=== PATIENT | female | born 1960 | race Caucasian/White ===

== ENCOUNTER 2016-05-13 15:17 | Emergency (ER) | payer BC ==
[~2016-05-13] VITALS: Ht 162.6 cm; Wt 97.7 kg
[~2016-05-13 15:17] MED LIST: ALLEGRA-D 24 HO1 T24 PO; ALLEGRA180 MG PO; ASPIRIN 81M81 MG/TA2 PO; B-12 500 MCG; B12; BENADRYL25 M2 PO; CALTRATE; CALTRATE 600600 MG PO; CARDI-OMEGA1000 MG PO; CHROMIUM PICO500 MC1 PO; CINNAMON500 MG PO; CIPRO 500MG TA500 MG PO; CYMBALTA 30MG30 MG PO; DILAUDID 2MG TAB2 MG PO; DOXYCYCLINE 10100 MG PO; ESTRACE0.5 MG PO; FISH OIL500 MG PO; FLONASE NASAL S16 GM NS; FOLIC ACID0.4 MG PO; GLUCOSAMINE; HUMIRA40 MG/0.8 MR; LEVOTHYROXIN0.025 MG PO; LISINOPRIL/HCTZ1 TA1 PO; LORTAB 7.5/5001 TAB PO; MAGNESIUM500 MG PO; MEDROL 4MG DOSPA4 MG PO; METHOTREXA2.5 MG/TAB PO; MULTIPLE VITAMI1 CAP PO; MULTIVITS; NAPROSYN375 MG PO; NEURONTIN100 MG/CAP PO; NORCO 325 MG-51 TAB PO; NUCYNTA ER100 MG PO; OSCAL 500 TAB500 MG PO; OSTEO-BI-FLEX 21 TAB PO; PAXIL 20MG20 MG PO; PENNSAID 150 M150 ML TOP; PERCOCET 325 MG1 TA2 PO; PERCOCET 325 MG1 TAB PO; PLAQUENIL 200M200 MG PO; PREDNISONE10 MG PO; PRINIVIL10 MG PO; RAYOS5 MG PO; REGLAN 10MG10 MG/TAB PO; SUPER EPA W/BO400 MG PO; ULTRAM50 MG PO; VENTOLIN0.09 MG IH; VITAMIN D32000 I1 PO; ZOCOR 10MG10 MG PO
[2016-05-13 15:27] VITALS: TEMP 98.3
[2016-05-13 16:40] LABS: BASO # 0.1 (0.0-0.2); EOS # 0.3 (0.0-0.7); EOS % 2.5 % (0-4.0); GRAN # 5.8 (1.4-6.5); GRAN % 55.6 % (42.2-75.2); HEMATOCRIT 45.4 % (37.0-47.0); HEMOGLOBIN 15.4 g/dl (12.5-16.0); LYMPH # 3.1 (1.2-3.4); LYMPH % 30.1 % (20.0-51.0); MEAN CELL VOLUME 92 fl (80.0-100.0); MEAN CORPUSCULAR HEMOGLOBIN 31 pg (27.0-31.0); MEAN CORPUSCULAR HGB CONC 34 g/dl (33.0-37.0); MEAN PLATELET VOLUME 10.6 fl (7.4-10.4); MONO # 1.1 (0.1-0.6); MONO % 10.4 % (1.7-9.3); PLATELET COUNT 267 K/mm3 (130-400); RED BLOOD COUNT 4.92 M/mm3 (4.10-5.30); REDCELL DISTRIBUTION WIDTH-CV 13.5 % (11.5-14.5); WHITE BLOOD COUNT 10.4 K/mm3 (4.8-10.8)
[2016-05-13 16:47] LABS: ADJUSTED CALCIUM 9.4 mg/dL (8.4-10.2); ALBUMIN 4.1 gm/dL (3.5-5.0); BILIRUBIN,TOTAL 0.7 mg/dL (0.0-1.0); CALCIUM 9.5 mg/dL (8.4-10.2); CREATININE, serum 0.91 mg/dL (0.52-1.25); POTASSIUM 4.7 mmol/L (3.4-5.0); TOTAL PROTEIN 7.4 gm/dL (6.4-8.2)
[2016-05-13 16:51] LABS: PH 6 (5-8); SQUAMOUS EPITHELIAL None Seen /hpf; URINE APPEARANCE Clear; URINE BACTERIA None Seen /hpf; URINE BILIRUBIN Negative (NEGATIVE); URINE BLOOD 3+ (NEGATIVE); URINE COLOR Yellow; URINE GLUCOSE Negative (NEGATIVE); URINE KETONE Negative (NEGATIVE); URINE RBC >50 /hpf; URINE UROBILINOGEN Negative (NEGATIVE); URINE WBC 0-2 /hpf
[2016-05-13] MEDS ORDERED: BELSOMRA10 MG PO (16:56)
[2016-05-13] MEDS ORDERED: MUCINEX D 12001 TER PO (16:59)
[2016-05-13] MEDS ORDERED: VENTOLIN0.09 MG IH (17:00)
[2016-05-13] MEDS ORDERED: PARAFON FORTE500 MG (17:03)
[2016-05-13] MEDS ORDERED: NUCYNTA ER100 MG PO (17:03)
[2016-05-13] MEDS ORDERED: GLUCOPHAGE500 MG/TAB PO (17:05)
[2016-05-13] MEDS ORDERED: SAXENDA6 MG/ML SQ (17:06)
[2016-05-13 18:37] VITALS: BP 143/100; PULSE 91
[2016-05-14] MEDS ORDERED: BIOTENE DRY M1000 ML MM (04:57)
[2016-05-14] MEDS ORDERED: SYNTHROID0.1 MG/TAB PO (05:00)
[2016-05-14] MEDS ORDERED: MUCINEX FAST-M177 ML PO (05:02)
[2016-05-14] MEDS ORDERED: REFRESH TEARS 330 ML OP (05:17)
[2016-05-14] MEDS ORDERED: CIPRO 250MG TA250 MG PO (05:20)
[2016-05-14] MEDS ORDERED: PYRIDIUM200 M1 PO (05:20)
[2016-05-14] MEDS ORDERED: DILAUDID 2MG TAB2 MG PO (05:20)
== END 2016-05-13 18:37 | disposition home or self-care (01) ==
LOC: COL.ER 15:17
PROVIDERS: Emergency Medicine
DX: N30.90 Cystitis, unspecified without hematuria (principal); N21.0 Calculus in bladder; I10 Essential (primary) hypertension
CPT/HCPCS: J0696; J2765; J3010; J7030; Q9967

== ENCOUNTER 2016-05-14 03:55 | Emergency (ER) | payer BC ==
[~2016-05-14] VITALS: Ht 154.9 cm; Wt 97.7 kg
[~2016-05-14 03:55] MED LIST changes: +BELSOMRA10 MG PO; +GLUCOPHAGE500 MG/TAB PO; +MUCINEX D 12001 TER PO; +PARAFON FORTE500 MG; +SAXENDA6 MG/ML SQ
[2016-05-14 03:57] VITALS: TEMP 97.4
[2016-05-14 04:27] LABS: PH 8 (5-8); SQUAMOUS EPITHELIAL 0-2 /hpf; URINE APPEARANCE Hazy; URINE BACTERIA None Seen /hpf; URINE BILIRUBIN Negative (NEGATIVE); URINE BLOOD 3+ (NEGATIVE); URINE COLOR Yellow; URINE GLUCOSE Negative (NEGATIVE); URINE KETONE Negative (NEGATIVE); URINE RBC >50 /hpf; URINE UROBILINOGEN Negative (NEGATIVE); URINE WBC 0-2 /hpf
[2016-05-14] MEDS ORDERED: BIOTENE DRY M1000 ML MM (04:57)
[2016-05-14] MEDS ORDERED: SYNTHROID0.1 MG/TAB PO (05:00)
[2016-05-14] MEDS ORDERED: MUCINEX FAST-M177 ML PO (05:02)
[2016-05-14] MEDS ORDERED: REFRESH TEARS 330 ML OP (05:17)
[2016-05-14] MEDS ORDERED: CIPRO 250MG TA250 MG PO (05:20)
[2016-05-14] MEDS ORDERED: DILAUDID 2MG TAB2 MG PO (05:20)
[2016-05-14] MEDS ORDERED: PYRIDIUM200 M1 PO (05:20)
[2016-05-14 05:47] VITALS: BP 143/73; PULSE 86
== END 2016-05-14 05:59 | disposition home or self-care (01) ==
LOC: COL.ER 03:55
PROVIDERS: Emergency Medicine
DX: N21.0 Calculus in bladder (principal); E11.9 Type 2 diabetes mellitus without complications; I10 Essential (primary) hypertension
CPT/HCPCS: J1170; J2405; J7030

== ENCOUNTER 2016-05-18 06:39 | Day surgery (SDC) | payer BC ==
[2016-05-18] VITALS (8 sets, daily range): BP systolic 108–164; BP diastolic 73–99; PULSE 79–92; TEMP 98.2–99.4
[~2016-05-18] VITALS: Ht 162.6 cm; Wt 100.1 kg
[~2016-05-18 06:39] MED LIST changes: +BIOTENE DRY M1000 ML MM; +CIPRO 250MG TA250 MG PO; +MUCINEX FAST-M177 ML PO; +PYRIDIUM200 M1 PO; +REFRESH TEARS 330 ML OP; +SYNTHROID0.1 MG/TAB PO
[2016-05-18] MEDS ORDERED: NEURONTIN300 MG/CAP PO (08:06)
[2016-05-18] MEDS ORDERED: HUMIRA40 MG/0.8 SQ (08:08)
[2016-05-18] MEDS ORDERED: NUCYNTA50 MG PO (08:13)
[2016-05-18] MEDS ORDERED: PENNSAID 150 M150 ML TOP (08:14)
[2016-05-18] MEDS ORDERED: NATURE'S BLE1000 MCG PO (08:21)
[2016-05-18] MEDS ORDERED: CALTRATE-600 W600 MG PO ×2 (08:25→08:26)
[2016-05-18] MEDS ORDERED: PROFERRIN ES12 MG PO (08:28)
== END 2016-05-18 12:55 | disposition home or self-care (01) ==
LOC: SDCO 06:39
DX: N21.0 Calculus in bladder (principal)
CPT/HCPCS: J0690; J1885; J2405; J2550; J2704; J3010; J7030; J7120

== ENCOUNTER 2016-06-30 18:15 | Emergency (ER) | payer BC ==
[~2016-06-30] VITALS: Ht 162.6 cm; Wt 93.2 kg
[~2016-06-30 18:15] MED LIST changes: +CALTRATE-600 W600 MG PO; +HUMIRA40 MG/0.8 SQ; +NATURE'S BLE1000 MCG PO; +NEURONTIN300 MG/CAP PO; +NUCYNTA50 MG PO; +PROFERRIN ES12 MG PO
[2016-06-30 18:18] VITALS: TEMP 97.5
[2016-06-30 18:43] LABS: BASO # 0.1 (0.0-0.2); BASO % 0.6 % (0.0-2.0); EOS # 0.1 (0.0-0.7); EOS % 0.9 % (0-4.0); GRAN # 7.8 (1.4-6.5); GRAN % 74.4 % (42.2-75.2); HEMATOCRIT 45.4 % (37.0-47.0); LYMPH # 1.6 (1.2-3.4); LYMPH % 14.8 % (20.0-51.0); MEAN CELL VOLUME 91 fl (80.0-100.0); MEAN CORPUSCULAR HEMOGLOBIN 32 pg (27.0-31.0); MEAN CORPUSCULAR HGB CONC 35 g/dl (33.0-37.0); MEAN PLATELET VOLUME 10.5 fl (7.4-10.4); MONO # 0.9 (0.1-0.6); MONO % 8.9 % (1.7-9.3); PLATELET COUNT 230 K/mm3 (130-400); WHITE BLOOD COUNT 10.5 K/mm3 (4.8-10.8)
[2016-06-30 18:59] LABS: ADJUSTED CALCIUM 9.3 mg/dL (8.4-10.2); ALANINE AMINOTRANSFERASE 36 U/L (9-52); ALBUMIN 4.1 gm/dL (3.5-5.0); ALKALINE PHOSPHATASE 105 U/L (50-136); ANION GAP 15 mmol/L (7-16); BILIRUBIN,TOTAL 0.7 mg/dL (0.0-1.0); BLOOD UREA NITROGEN 11 mg/dL (7-17); CALCIUM 9.4 mg/dL (8.4-10.2); CARBON DIOXIDE 22 mmol/L (22-30); CHLORIDE 102 mmol/L (98-107); CREATININE, serum 0.85 mg/dL (0.52-1.25); GLUCOSE 169 mg/dL (74-106); LIPASE 149 U/L (23-300); POTASSIUM 3.6 mmol/L (3.4-5.0); SODIUM 138 mmol/L (137-145); TOTAL PROTEIN 6.8 gm/dL (6.4-8.2)
[2016-06-30 19:00] LABS: C-REACTIVE PROTEIN < 0.5 mg/dL (0.0-0.9)
[2016-06-30] MEDS ORDERED: CYMBALTA 60MG60 MG PO (19:25)
[2016-06-30] MEDS ORDERED: ZOFRAN ODT4 MG PO (19:35)
[2016-06-30 19:51] VITALS: BP 122/70; PULSE 85
== END 2016-06-30 19:54 | disposition home or self-care (01) ==
LOC: COL.ER 18:15
PROVIDERS: Family Medicine
DX: K52.9 Noninfective gastroenteritis and colitis, unspecified (principal); E11.9 Type 2 diabetes mellitus without complications; M06.9 Rheumatoid arthritis, unspecified; Z79.84 Long term (current) use of oral hypoglycemic drugs; Z98.84 Bariatric surgery status
CPT/HCPCS: J2405; J2550; J7030

== ENCOUNTER 2016-11-11 07:54 | Emergency (ER) | payer BC ==
[~2016-11-11] VITALS: Ht 162.6 cm; Wt 93.2 kg
[~2016-11-11 07:54] MED LIST changes: +CYMBALTA 60MG60 MG PO; +ZOFRAN ODT4 MG PO
[2016-11-11 07:58] VITALS: TEMP 97.5
[2016-11-11] MEDS ORDERED: BELSOMRA10 MG PO (08:06)
[2016-11-11] MEDS ORDERED: VENTOLIN0.09 MG IH (08:09)
[2016-11-11] MEDS ORDERED: HUMIRA40 MG/0.8 SQ (08:10)
[2016-11-11] MEDS ORDERED: PLAQUENIL 200M200 MG PO (08:11)
[2016-11-11] MEDS ORDERED: NUCYNTA75 MG PO (08:13)
[2016-11-11] MEDS ORDERED: PENNSAID 150 M150 ML TOP (08:13)
[2016-11-11] MEDS ORDERED: PREDNISONE20 MG PO (08:50)
[2016-11-11 09:13] VITALS: BP 141/97; PULSE 80
== END 2016-11-11 09:14 | disposition home or self-care (01) ==
LOC: COL.ER 07:54
DX: M06.9 Rheumatoid arthritis, unspecified (principal); S50.861A Insect bite (nonvenomous) of right forearm, initial encounter; E11.9 Type 2 diabetes mellitus without complications; Z79.82 Long term (current) use of aspirin; Z79.84 Long term (current) use of oral hypoglycemic drugs

== ENCOUNTER → 2017-05-16 | Outpatient (CLI) | payer BC ==
[~2017-05-16] MED LIST changes: +NUCYNTA75 MG PO; +PREDNISONE20 MG PO
== END ==
LOC: COL.RAD 07:13
DX: N39.0 Urinary tract infection, site not specified (principal)

== ENCOUNTER → 2018-07-10 | Outpatient (CLI) | payer BC ==
[2018-07-10 13:20] LABS: CREATININE, serum 1.09 (0.52-1.25)
== END ==
LOC: COL.LAB 12:08
PROVIDERS: Family Medicine
DX: R22.2 Localized swelling, mass and lump, trunk (principal)

== ENCOUNTER → 2018-12-31 | Outpatient (CLI) | payer BC | LOC: COL.RAD 10:02 | DX: Z01.812 Encounter for preprocedural laboratory examination (principal); M79.641 Pain in right hand | CPT/HCPCS: A9585 ==

== ENCOUNTER 2019-05-10 18:01 | Emergency (ER) | payer BC ==
[~2019-05-10] VITALS: Ht 160 cm; Wt 59.1 kg
[2019-05-10 18:09] VITALS: BP 130/77; TEMP 97.4
[2019-05-10 18:59] VITALS: PULSE 71
== END 2019-05-10 19:01 | disposition home or self-care (01) ==
LOC: COL.ER 18:01
DX: S01.81XA Laceration without foreign body of other part of head, initial encounter (principal); E11.9 Type 2 diabetes mellitus without complications; I10 Essential (primary) hypertension; M06.9 Rheumatoid arthritis, unspecified; M79.7 Fibromyalgia; Z79.82 Long term (current) use of aspirin; Z79.51 Long term (current) use of inhaled steroids; Z79.84 Long term (current) use of oral hypoglycemic drugs; Z23 Encounter for immunization; W22.8XXA Striking against or struck by other objects, initial encounter; Y92.009 Unspecified place in unspecified non-institutional (private) residence as the place of occurrence of the external cause

== ENCOUNTER → 2019-05-22 | Outpatient (CLI) | payer BC | LOC: COL.ER 15:37 | DX: Z48.02 Encounter for removal of sutures (principal) ==

== ENCOUNTER 2019-05-27 09:00 | Outpatient (RCR) | payer BC ==
[~2019-05-27 09:00] MED LIST changes: -PARAFON FORTE500 MG; +PARAFON FORTE500 MG PO
[2019-06-28] MEDS ORDERED: TEMOVATE30CR TOP (08:52)
[2019-06-28] MEDS ORDERED: MEDROL 4MG DOSPA4 MG PO (09:05)
== END 2019-10-16 ==
LOC: WSC
DX: M25.552 Pain in left hip (principal)

== ENCOUNTER → 2021-02-28 | Outpatient (CLI) | payer BC ==
[~2021-02-28] MED LIST changes: +TEMOVATE30CR TOP
== END ==
LOC: COL.RAD 02-22 10:30
DX: R74.8 Abnormal levels of other serum enzymes (principal); Z90.49 Acquired absence of other specified parts of digestive tract

== ENCOUNTER → 2021-08-08 | Outpatient (CLI) | payer BC | LOC: MC.RAD 10:51 | DX: Z12.31 Encounter for screening mammogram for malignant neoplasm of breast (principal) ==

== ENCOUNTER 2023-05-06 04:09 | Inpatient (IN) | payer BC ==
[~2023-05-06] VITALS: Ht 160 cm; Wt 70.1 kg
[2023-05-06] VITALS (591 sets, daily range): BP systolic 93–115; BP diastolic 61–73; PULSE 81–94; TEMP 97.9–98.7; O2SAT 69–100
[~2023-05-06 04:09] MED LIST changes: +MAGNESIUM250 M1 PO; -MAGNESIUM500 MG PO
[2023-05-06 04:24] LABS: BASO # 0.1 K/mm3 (0.0-0.2); EOS # 1.1 K/mm3 (0.0-0.7); EOS % 8.1 % (0.0-4.0); GRAN % 51.3 % (42.2-75.2); HEMATOCRIT 44.9 % (37.0-47.0); HEMOGLOBIN 14.6 g/dl (12.5-16.0); LYMPH # 3.9 K/mm3 (1.2-3.4); LYMPH % 28.6 % (20.0-51.0); MEAN CELL VOLUME 92 fl (80.0-100.0); MEAN CORPUSCULAR HEMOGLOBIN 30 pg (27-31); MEAN CORPUSCULAR HGB CONC 33 g/dl (33.0-37.0); MONO # 1.4 K/mm3 (0.1-0.6); MONO % 10.6 % (1.7-9.3); PLATELET COUNT 381 K/mm3 (130-400); RED BLOOD COUNT 4.86 M/mm3 (4.10-5.30); REDCELL DISTRIBUTION WIDTH-CV 14.2 % (11.5-14.5)
[2023-05-06] MEDS ORDERED: NS 1,000 ML IV ONE ×3 (04:30→11:00)
[2023-05-06 04:41] LABS: ALANINE AMINOTRANSFERASE 87 U/L (0-55); ALBUMIN 3.4 gm/dL (3.4-4.8); ALKALINE PHOSPHATASE 202 U/L (40-150); ANION GAP 16 mmol/L (7-16); AST,SGOT 59 U/L (5-34); BILIRUBIN,TOTAL 0.3 mg/dL (0.2-1.2); BLOOD UREA NITROGEN 79 mg/dL (10-20); CALCIUM 9.6 mg/dL (8.4-10.2); CARBON DIOXIDE 23 mmol/L (23-31); CHLORIDE 95 mmol/L (98-107); GLUCOSE 140 mg/dL (70-99); POTASSIUM 3.6 mmol/L (3.5-4.5); SODIUM 134 mmol/L (136-145); TOTAL PROTEIN 6.9 gm/dL (6.2-8.1)
[2023-05-06 04:45] LABS: INR 0.9 (0.8-3.0); PROTHROMBIN TIME 10.3 SECONDS (9.7-12.8)
[2023-05-06 04:50] LABS: TROPONIN-I < 0.010 ng/mL (0.00-0.033)
[2023-05-06 05:26] LABS: COLLECTION METHOD CLEAN CATCH
[2023-05-06 05:29] LABS: URINE APPEARANCE CLEAR (CLEAR/HAZY); URINE BLOOD NEGATIVE (NEGATIVE); URINE COLOR YELLOW (YELLOW); URINE GLUCOSE 1+ (NEGATIVE); URINE KETONE NEGATIVE (NEGATIVE); URINE NITRATE NEGATIVE (NEGATIVE); URINE PROTEIN(semi-quant) NEGATIVE (NEGATIVE); URINE UROBILINOGEN 0.2 E.U/dL (0.2-1.0)
[2023-05-06] MEDS ORDERED: LASIX 20MG TABL20 MG PO (05:48)
[2023-05-06] MEDS ORDERED: PEPCID 20MG TAB20 MG PO (05:48)
[2023-05-06] MEDS ORDERED: SYNTHROID0.088 MG/T PO (05:49)
[2023-05-06] MEDS ORDERED: PRINIVIL20 MG PO (05:50)
[2023-05-06] MEDS ORDERED: PREDNISONE 5MG5 MG PO (05:50)
[2023-05-06] MEDS ORDERED: ZOCOR 10MG10 MG PO (05:51)
[2023-05-06] MEDS ORDERED: FOSAMAX 70MG TA70 MG PO (05:53)
[2023-05-06] MEDS ORDERED: SKYRIZI PE150 MG/1 M SQ (05:54)
[2023-05-06] MEDS ORDERED: Albuterol/Ipratropium 3 MG-0.5 MG/3 ML Neb Soln IH PRN (06:00)
[2023-05-06] MEDS ORDERED: Acetaminophen 325 MG TAB PO PRN (06:00)
[2023-05-06] MEDS ORDERED: NS 1,000 ML IV SCH (06:00)
[2023-05-06] MEDS ORDERED: Ondansetron 4 MG/2 ML VIAL IV PRN (06:00)
[2023-05-06] MEDS ORDERED: PREVIDENT5000PLUS DT ×2 (06:57→08:24)
[2023-05-06] MEDS ORDERED: VOLTAREN GEL 1%1 TU TP (06:59)
[2023-05-06] MEDS ORDERED: NORCO 325 MG-101 TAB PO (07:00)
[2023-05-06] MEDS ORDERED: HYDROcodone/Acetaminophen 7.5-325 MG TAB PO PRN (07:00)
[2023-05-06] MEDS ORDERED: ZOFRAN ODT4 MG PO (07:40)
[2023-05-06] MEDS ORDERED: LIDODERM 5% PATC1 EA TP (07:44)
[2023-05-06] MEDS ORDERED: NARCAN4 MG NS (07:49)
[2023-05-06] MEDS ORDERED: JARDIANCE10 PO (07:51)
[2023-05-06] MEDS ORDERED: SAXENDA6 MG/ML SQ (07:54)
[2023-05-06] MEDS ORDERED: BENADRYL25 M2 PO ×2 (07:57→08:35)
[2023-05-06] MEDS ORDERED: BIOTIN5000 MCG PO (07:58)
[2023-05-06 07:59] LABS: CALCIUM 8.6 mg/dL (8.4-10.2); CREATININE, serum 1.51 mg/dL (0.57-1.11); MAGNESIUM 2.3 mg/dL (1.6-2.6); POTASSIUM 4.3 mmol/L (3.5-4.5)
[2023-05-06] MEDS ORDERED: VITAMIN C500 MG PO (07:59)
[2023-05-06] MEDS ORDERED: Heparin 5,000 UNITS/ML 1 ML VIAL SQ SCH (08:00)
[2023-05-06] MEDS ORDERED: VITAMIND3 5000 PO (08:02)
[2023-05-06] MEDS ORDERED: FLINTSTONES1 CTB PO (08:04)
[2023-05-06] MEDS ORDERED: COLACE 100100 MG/CAP PO (08:04)
[2023-05-06] MEDS ORDERED: GINGER ROOT EX250 MG PO (08:05)
[2023-05-06] MEDS ORDERED: GLUCOSAMINE & C1 CA2 PO (08:06)
[2023-05-06] MEDS ORDERED: GLUTATHIONE RE500 MG PO (08:06)
[2023-05-06] MEDS ORDERED: MASON NATURAL1200 MG PO (08:40)
[2023-05-06] MEDS ORDERED: MULTIVITAMIN200 MCG PO (08:40)
[2023-05-06] MEDS ORDERED: GLUCOSAMINE MSM1 TAB PO (08:42)
[2023-05-06] MEDS ORDERED: IRON TABLETS325 MG PO (08:43)
[2023-05-06] MEDS ORDERED: VITAMIN K2100 MCG PO (08:44)
[2023-05-06] MEDS ORDERED: MILK THISTLE150 MG PO (08:46)
[2023-05-06] MEDS ORDERED: PROBIOTIC-MAJOR PO (08:47)
[2023-05-06] MEDS ORDERED: SYSTANE BALANCE10 M1 OP (08:51)
[2023-05-06] MEDS ORDERED: TURMERIC500 MG PO (08:51)
[2023-05-06] MEDS ORDERED: PHARMASSURE ZIN50 MG PO (08:52)
[2023-05-06] MEDS ORDERED: [UNRECOGNIZED DRUG - OTHER] TP (08:53)
[2023-05-06] MEDS ORDERED: [UNRECOGNIZED DRUG - OTHER] TOP (08:53)
[2023-05-06] MEDS ORDERED: TYLENOL 500MG500 MG PO (08:54)
[2023-05-06] MEDS ORDERED: CBD (08:56)
[2023-05-06] MEDS ORDERED: COLLAGENASE 1 ML1 ML PO (08:59)
[2023-05-06] MEDS ORDERED: predniSONE 5 MG TAB PO SCH (09:00)
[2023-05-06] MEDS ORDERED: COLLAGEN PEPTIDES PO (09:00)
[2023-05-06] MEDS ORDERED: Sennosides/Docusate 8.6-50 MG TAB PO SCH (09:00)
[2023-05-06] MEDS ORDERED: DULoxetine 60 MG CAP PO SCH ×2 (09:00→21:00)
[2023-05-06] MEDS ORDERED: [UNRECOGNIZED DRUG - OTHER] PO (09:01)
[2023-05-06] MEDS ORDERED: [UNRECOGNIZED DRUG - OTHER] PO (09:01)
--- NOTE | 2023-05-06 09:26 | NUR ---
Pt arrived to room ICU 4. Pt able to amblate from stretcher to bed with standby assistance. Pt had recent total knee replacement. Incision is CDI and open to air. Pt denies any SOB or dizziness at this time. Pt c/o knee pain rating at 7/10 and requetsing PRN medicaiton. Pt attached to critical care monitors. Pt oriented to room. Call light within reach. Will continue with POC.
[2023-05-06] MEDS ORDERED: HYDROcodone/Acetaminophen 10-325 MG TAB PO PRN (11:15)
--- NOTE | 2023-05-06 12:44 | NUR ---
Pt leaving floor for VQ scan.
--- NOTE | 2023-05-06 13:54 | NUR ---
Parts Administrator met with patient to discuss discharge planning. Patient lives in [place] with her , Adonis (ph#[phone]) who is at bedside. Patient was seeing Dr. García at [facility] for primary care, but patient advised Dr. García was leaving the practice so she is unsure who will take over her care. Patient obtains medications at [facility]. Patient advised she has had difficulty getting her pain medications covered by insurance and that she cannot afford the out of pocket cost. Patient advised the pain clinic she goes to in [place] is helping her work through this. Patient had knee surgery four weeks ago and she has been going to [facility] for PT. Patient has a front wheeled walker available at home. Patient is normally independent with ADLS and has been doing fairly well after her surgery. Patient has 13 stairs in her home, but has been staying on the main level while she recovers. Patient believes she may have DPOA-HC but that she would have to look for it at home. Patient plans to return home at time of discharge and continue outpatient PT. Discharge Plan; Home, OP PT
[2023-05-06] MEDS ORDERED: Simvastatin 10 MG **** subs to Atorvastatin 5 MG PO SCH (21:00)
[2023-05-06] MEDS ORDERED: predniSONE 10 MG TAB PO SCH (21:00)
[2023-05-06] MEDS ORDERED: Atorvastatin 10 MG TAB PO SCH (21:00)
[2023-05-06] MEDS ORDERED: Melatonin 3 MG TAB PO PRN (23:15)
[2023-05-07] VITALS (648 sets, daily range): BP systolic 100–126; BP diastolic 60–79; PULSE 69–84; TEMP 97.7–98.8; O2SAT 82–100
--- NOTE | 2023-05-07 07:00 | NUR ---
Report received from SOTERO Murrieta; patient currently resting in bed with NS running through her peripheral line. Patient has no other lines or tubes in place this morning; patient is on room air and vital signs are within normal limits this morning.
[2023-05-07 08:25] LABS: MEAN CELL VOLUME 91 fl (80.0-100.0); MEAN CORPUSCULAR HGB CONC 33 g/dl (33.0-37.0); MEAN PLATELET VOLUME 9.9 fl (7.4-10.4); RED BLOOD COUNT 3.98 M/mm3 (4.10-5.30); REDCELL DISTRIBUTION WIDTH-CV 14.1 % (11.5-14.5)
[2023-05-07 08:28] LABS: HEMATOCRIT 36.2 % (37.0-47.0); MEAN CORPUSCULAR HEMOGLOBIN 30 pg (27-31); PLATELET COUNT 206 K/mm3 (130-400)
[2023-05-07 08:41] LABS: ALBUMIN 2.6 gm/dL (3.4-4.8); BILIRUBIN,TOTAL 0.5 mg/dL (0.2-1.2); CHOLESTEROL RISK RATIO 1.8; CREATININE, serum 0.94 mg/dL (0.57-1.11); MAGNESIUM 2.1 mg/dL (1.6-2.6); POTASSIUM 4.5 mmol/L (3.5-4.5); TOTAL PROTEIN 5.3 gm/dL (6.2-8.1)
[2023-05-07 09:01] LABS: THYROID STIMULATING HORMONE 0.654 uIU/mL (0.350-4.940)
--- NOTE | 2023-05-07 09:55 | NUR ---
Initial visit; Patient doing much better and thanked Community Health Director for looking in on her this morning. Patient has a lot of prayers coming from her confucianist and thanked Community Health Director for offering a special prayer and keeping her in Community Health Director's prayers for continued healing.
[2023-05-07] MEDS ORDERED: Dextrose 50% Water 25 GM/50 ML SYRINGE IV PRN (14:15)
[2023-05-07] MEDS ORDERED: Glucagon 1 MG VIAL IM PRN (14:15)
[2023-05-07] MEDS ORDERED: Dextrose (Glucose) 15 GM (4 x 3.75 GM) Chewable TABLET PACK PO PRN (14:15)
[2023-05-07] MEDS ORDERED: Insulin Aspart (NovoLOG) SQ SCH (17:00)
--- NOTE | 2023-05-07 22:41 | NUR ---
patient lying in bed alert and oriented x4. pt denies chest pain and shortness of breath. IV in RW is patent, site is clean dry and intact with NS running at 75 ml/hr. left knee incision open to air and small right shoulder sites are clean dry and intact, slight nonpitting edema to BLE noted. pt has no further needs, questions or concerns at this time. ambulating with weak but steady gait with x 1 assist and walker. fall precautions in place, call light within reach. will continue to monitor.
--- NOTE | 2023-05-07 23:30 | NUR ---
REPORT RECEIVED FROM SOTERO HANKS. PT RESTING IN BED WITH UNLABORED RESP & DENYING NEEDS AT THIS TIME. CALL LIGHT IN REACH
[2023-05-08 03:12] VITALS: BP 126/80; PULSE 74; TEMP 98.2
--- NOTE | 2023-05-08 06:13 | NUR ---
NO EVENTS OVERNIGHT. PAIN CONTROLLED WITH PRN NORCO. PT RESTING IN BED WITH UNLABORED RESP & CALL LIGHT IN REACH
[2023-05-08 07:11] LABS: CALCIUM 8.4 mg/dL (8.4-10.2); CREATININE, serum 0.75 mg/dL (0.57-1.11); MAGNESIUM 1.9 mg/dL (1.6-2.6); POTASSIUM 4.5 mmol/L (3.5-4.5)
[2023-05-08 07:14] LABS: BASO % 0.5 % (0.0-2.0); EOS # 0.1 K/mm3 (0.0-0.7); GRAN # 3.6 K/mm3 (1.4-6.5); GRAN % 66.5 % (42.2-75.2); HEMOGLOBIN 11.5 g/dl (12.5-16.0); MEAN CELL VOLUME 93 fl (80.0-100.0); MEAN CORPUSCULAR HEMOGLOBIN 30 pg (27-31); MEAN CORPUSCULAR HGB CONC 32 g/dl (33.0-37.0); MEAN PLATELET VOLUME 11.1 fl (7.4-10.4); MONO # 0.6 K/mm3 (0.1-0.6); MONO % 11.5 % (1.7-9.3); PLATELET COUNT 169 K/mm3 (130-400); RED BLOOD COUNT 3.86 M/mm3 (4.10-5.30); REDCELL DISTRIBUTION WIDTH-CV 14.2 % (11.5-14.5)
[2023-05-08 07:16] LABS: HEMATOCRIT 35.7 % (37.0-47.0)
[2023-05-08 07:20] VITALS: BP 121/73; PULSE 68; TEMP 97.7
--- NOTE | 2023-05-08 07:30 | NUR ---
Patient sitting up in bed, A&Ox4. VSS. IV CDI, fluids infusing. Denies pain and discomfort. Call light within reach
[2023-05-08 11:20] VITALS: BP 129/88; PULSE 73; TEMP 97.7
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
--- NOTE | 2023-05-08 12:46 | NUR ---
Discharge paperwork reviewed with the patient. Patient verbalized an understanding to follow doctors. IV removed, tip intact. Gauze and coban applied. Patient getting dressed and waiting on to arrive. Call light within reach
--- NOTE | 2023-05-08 12:56 | NUR ---
layup worker attended clinical rounding with interdisciplinary team. Patient is medically ready for discharge. Patient would like to return home with her OP PT. SW and SW Student met with patient to check in and see what agency she has her OP PT at. Patient reports she has OP PT at [facility] and has an appointment on Saturday. Patient reports she sees them three times a week. Patient has no other concerns or questions at this time. Discharge plan: Home with OP PT
--- NOTE | 2023-05-08 13:03 | NUR ---
Patient taken by wheelchair to awaiting vehicle. Discharge paperwork and personal belongings with the patient. No further needs expressed
[2023-05-13] MEDS ORDERED: MACROBID 1100 MG/CAP PO (10:05)
== END 2023-05-08 13:03 | disposition home or self-care (01) | DRG 644 ==
LOC: COL.ER 04:09 → ICU 06:02 → MEDICAL 05-07 15:04
PROVIDERS: Emergency Medicine; Hospitalist; Internal Medicine; Physician Assistant; ADMIT Internal Medicine
DX: E27.40 Unspecified adrenocortical insufficiency (principal); E87.20 Acidosis, unspecified; I50.32 Chronic diastolic (congestive) heart failure; F11.20 Opioid dependence, uncomplicated; N17.9 Acute kidney failure, unspecified; I95.1 Orthostatic hypotension; E78.5 Hyperlipidemia, unspecified; E11.9 Type 2 diabetes mellitus without complications; M81.0 Age-related osteoporosis without current pathological fracture; E03.9 Hypothyroidism, unspecified; I11.0 Hypertensive heart disease with heart failure; Z96.652 Presence of left artificial knee joint; R79.89 Other specified abnormal findings of blood chemistry; Z96.611 Presence of right artificial shoulder joint; G89.4 Chronic pain syndrome; D72.829 Elevated white blood cell count, unspecified; M45.9 Ankylosing spondylitis of unspecified sites in spine; E86.0 Dehydration; Z79.52 Long term (current) use of systemic steroids; Z90.710 Acquired absence of both cervix and uterus; Z90.49 Acquired absence of other specified parts of digestive tract; Z90.89 Acquired absence of other organs; Z88.6 Allergy status to analgesic agent; Z88.5 Allergy status to narcotic agent; Z88.0 Allergy status to penicillin; Z88.2 Allergy status to sulfonamides; Z88.8 Allergy status to other drugs, medicaments and biological substances; Z79.84 Long term (current) use of oral hypoglycemic drugs; Z79.82 Long term (current) use of aspirin; Z79.899 Other long term (current) drug therapy; Z79.890 Hormone replacement therapy; Z23 Encounter for immunization
CPT/HCPCS: A9540-JZ; A9567-JZ; J1644; J2405; J7030; J7512

== ENCOUNTER 2023-05-12 18:53 | Emergency (ER) | payer BC, MEDICARE ==
[~2023-05-12] VITALS: Ht 160 cm; Wt 63.6 kg
[~2023-05-12 18:53] MED LIST changes: +BIOTIN5000 MCG PO; +CBD; +COLACE 100100 MG/CAP PO; +COLLAGEN PEPTIDES PO; +COLLAGENASE 1 ML1 ML PO; +FLINTSTONES1 CTB PO; +FOSAMAX 70MG TA70 MG PO; +GINGER ROOT EX250 MG PO; +GLUCOSAMINE & C1 CA2 PO; +GLUCOSAMINE MSM1 TAB PO; +GLUTATHIONE RE500 MG PO; +IRON TABLETS325 MG PO; +JARDIANCE10 PO; +LASIX 20MG TABL20 MG PO; +LIDODERM 5% PATC1 EA TP; +MASON NATURAL1200 MG PO; +MILK THISTLE150 MG PO; +MULTIVITAMIN200 MCG PO; +NARCAN4 MG NS; +NORCO 325 MG-101 TAB PO; +PEPCID 20MG TAB20 MG PO; +PHARMASSURE ZIN50 MG PO; +PREDNISONE 5MG5 MG PO; +PREVIDENT5000PLUS DT; +PRINIVIL20 MG PO; +PROBIOTIC-MAJOR PO; +SKYRIZI PE150 MG/1 M SQ; +SYNTHROID0.088 MG/T PO; +SYSTANE BALANCE10 M1 OP; +TURMERIC500 MG PO; +TYLENOL 500MG500 MG PO; +VITAMIN C500 MG PO; +VITAMIN K2100 MCG PO; +VITAMIND3 5000 PO; +VOLTAREN GEL 1%1 TU TP; +[UNRECOGNIZED DRUG - OTHER] PO; +[UNRECOGNIZED DRUG - OTHER] PO; +[UNRECOGNIZED DRUG - OTHER] TOP; +[UNRECOGNIZED DRUG - OTHER] TP
[2023-05-12 19:14] LABS: BASO % 0.2 % (0.0-2.0); EOS # 0.1 K/mm3 (0.0-0.7); EOS % 0.6 % (0.0-4.0); GRAN # 11.5 K/mm3 (1.4-6.5); GRAN % 88.9 % (42.2-75.2); HEMATOCRIT 41.4 % (37.0-47.0); HEMOGLOBIN 13.9 g/dl (12.5-16.0); LYMPH # 0.7 K/mm3 (1.2-3.4); LYMPH % 5.3 % (20.0-51.0); MEAN CELL VOLUME 90 fl (80.0-100.0); MEAN CORPUSCULAR HEMOGLOBIN 30 pg (27-31); MEAN CORPUSCULAR HGB CONC 34 g/dl (33.0-37.0); MEAN PLATELET VOLUME 9.7 fl (7.4-10.4); MONO # 0.5 K/mm3 (0.1-0.6); MONO % 4.1 % (1.7-9.3); PLATELET COUNT 240 K/mm3 (130-400); REDCELL DISTRIBUTION WIDTH-CV 13.8 % (11.5-14.5)
[2023-05-12] MEDS ORDERED: NS 1,000 ML IV ONE (19:15)
[2023-05-12] MEDS ORDERED: Acetaminophen 500 MG TAB PO ONE (19:15)
[2023-05-12] MEDS ORDERED: diphenhydrAMINE 50 MG/ML 1 ML VIAL IV ONE (19:30)
[2023-05-12 19:31] LABS: ALANINE AMINOTRANSFERASE 25 U/L (0-55); ALBUMIN 2.8 gm/dL (3.4-4.8); ALKALINE PHOSPHATASE 185 U/L (40-150); ANION GAP 13 mmol/L (7-16); AST,SGOT 34 U/L (5-34); BILIRUBIN,TOTAL 0.7 mg/dL (0.2-1.2); BLOOD UREA NITROGEN 19 mg/dL (10-20); CARBON DIOXIDE 20 mmol/L (23-31); CHLORIDE 96 mmol/L (98-107); CREATININE, serum 1.27 mg/dL (0.57-1.11); GLUCOSE 125 mg/dL (70-99); POTASSIUM 4.2 mmol/L (3.5-4.5); SODIUM 129 mmol/L (136-145); TOTAL PROTEIN 6.4 gm/dL (6.2-8.1)
[2023-05-12 19:38] LABS: COLLECTION METHOD CATHETER
[2023-05-12 19:47] LABS: TROPONIN-I < 0.010 ng/mL (0.00-0.033)
[2023-05-12 19:48] LABS: PH 6.5 (5.0-8.5); URINE APPEARANCE CLOUDY (CLEAR/HAZY); URINE BLOOD 1+ (NEGATIVE); URINE COLOR YELLOW (YELLOW); URINE GLUCOSE 2+ (NEGATIVE); URINE KETONE NEGATIVE (NEGATIVE); URINE NITRATE NEGATIVE (NEGATIVE); URINE PROTEIN(semi-quant) 2+ (NEGATIVE)
[2023-05-12] MEDS ORDERED: TORADOL 10MG TA10 MG PO (20:28)
[2023-05-12] MEDS ORDERED: ZOFRAN 4MG T4 MG/TAB PO (20:28)
[2023-05-12] MEDS ORDERED: CIPRO 500MG TA500 MG PO (20:43)
[2023-05-12] MEDS ORDERED: Ibuprofen 200 MG TAB PO ONE (21:00)
[2023-05-12 22:46] VITALS: BP 97/65; PULSE 85; TEMP 98.4
[2023-05-13] MEDS ORDERED: MACROBID 1100 MG/CAP PO (10:05)
== END 2023-05-12 22:46 | disposition home or self-care (01) ==
LOC: COL.ER 18:53
PROVIDERS: Emergency Medicine
DX: N39.0 Urinary tract infection, site not specified (principal); N17.9 Acute kidney failure, unspecified; R51.9 Headache, unspecified; Z88.0 Allergy status to penicillin; Z88.1 Allergy status to other antibiotic agents; Z88.2 Allergy status to sulfonamides; Z88.6 Allergy status to analgesic agent
CPT/HCPCS: J0744; J0780; J1200; J7030

== ENCOUNTER 2023-05-14 14:39 | Outpatient (CLI) | payer BC, MEDICARE ==
[~2023-05-14] VITALS: Ht 160 cm; Wt 70.2 kg
[~2023-05-14 14:39] MED LIST changes: +MACROBID 1100 MG/CAP PO; +TORADOL 10MG TA10 MG PO; +ZOFRAN 4MG T4 MG/TAB PO
[2023-05-14] MEDS ORDERED: NS 1,000 ML IV SCH (15:00)
[2023-05-14 15:06] VITALS: BP 107/63; PULSE 78; TEMP 97.9
--- NOTE | 2023-05-14 16:36 | NUR ---
PT TOLERATES INFUSION WELL. VS REMAIN WITHIN NORMAL LIMITS AND PT CONTINUES TO TOLERATE PO FOOD AND FLUIDS DURING INFUSION. PT FREE FROM ACUTE CONCERNS AND COMPLAINTS AT THIS TIME.
== END 2023-05-14 16:58 | disposition home or self-care (01) ==
LOC: EUO 14:39
DX: I95.9 Hypotension, unspecified (principal)
CPT/HCPCS: J7030

== ENCOUNTER → 2023-10-02 | Outpatient (CLI) | payer MEDICARE, BC | LOC: MC.RAD 10:53 | DX: Z12.31 Encounter for screening mammogram for malignant neoplasm of breast (principal) ==